=== PATIENT | female | born 1985 | race Caucasian/White ===

== ENCOUNTER 2020-07-24 06:04 | Emergency (ER) | payer BC, OTHER ==
--- NOTE | 2020-07-24 06:54 | EDM.PDOC ---
<Leo Silverman - Last Filed: 07/24/20 06:58> ED HPI GENERAL MEDICAL PROBLEM - General Chief Complaint: General Stated Complaint: BOTH LEGS HURT, SMALL OF BACK ALSO Time Seen by Provider: 07/24/20 06:22 Source of Information: Reports: Patient History Limitations: Reports: No Limitations - History of Present Illness INITIAL COMMENTS - FREE TEXT/NARRATIVE: onset F/C body aches, head congestion, Friday. then started LBP. then everything went down to both her thighs and legs today. legs feel heavy but not painful. states denies F/C now but feels general body discomfort that is hard to describe. appetite fair. denies CP/SOB/ cough. denies UTI Sx, but did have LBP that is better now. denies h/o back problems. 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 ED EXAM, GENERAL - Physical Exam Exam: See Below Exam Limited By: No Limitations General Appearance: Alert, WD/WN, Mild Distress, Other (general discomfort) Ears: Hearing Grossly Normal Throat/Mouth: Normal Voice, No Airway Compromise Head: Atraumatic Neck: Non-Tender, Full Range of Motion Respiratory/Chest: No Respiratory Distress Cardiovascular: Regular Rate, Rhythm GI/Abdominal: Soft, Non-Tender (Female) Exam: Deferred Rectal (Female) Exam: Deferred Neurological: Alert, Oriented, Normal Cognition, Normal Gait, No Motor/Sensory Deficits Psychiatric: Flat Affect Skin Exam: Warm, Dry, Normal Color Lymphatic: No Adenopathy Departure - Departure Disposition: Home, Self-Care 01 Clinical Impression: COVID-19 - Discharge Information Instructions: COVID-19 Frequently Asked Questions, COVID-19: How to Protect Yourself and Others - CDC, Prevent the Spread of COVID-19 if You Are Sick - CDC Forms: ED Department Discharge Additional Instructions: Quarantine yourself and your family and close contacts for the next 14. The state will be contacting you for contact tracing. Notify any close contacts of your diagnosis. Rest as much as possible. Plenty of fluids. Tylenol as needed for pain fever discomfort. Vit C 500mg by mouth twice daily. Zinc 50mg by mouth daily. Vit D3 5000 units daily. Stay home and away from people. Call the clinic prior to going in if you are getting sick to the point of concern. Return to the ED if new or worsening symptom. Sepsis Event Note (ED) - Evaluation Sepsis Screening Result: No Definite Risk <Pacheco Berry - Last Filed: 07/24/20 08:52> Course - Vital Signs Last Recorded V/S: Last Vital Signs Temp 96.5 F L 07/24/20 06:14 Pulse 98 07/24/20 06:14 Resp 18 07/24/20 06:14 BP 106/62 07/24/20 06:14 Pulse Ox 100 07/24/20 06:14 - Orders/Labs/Meds Orders: Active Orders 24 hr Category Date Time Status Isolation [COMM] Routine Oth 07/24/20 06:31 Active Labs: Laboratory Tests 07/24/20 07/24/20 07/24/20 Range/Units 06:40 06:40 06:40 WBC 3.2 L (5.0-10.0) 10^3/uL RBC 4.41 (4.2-5.4) 10^6/uL Hgb 12.5 (12.0-16.0) g/dL Hct 38.3 (37.0-47.0) % MCV 86.8 (80-100) fL MCH 28.3 (27.0-34.0) pg MCHC 32.6 L (33.0-35.0) g/dL Plt Count 197 (150-450) 10^3/uL Neut % (Auto) 53.3 (42.2-75.2) % Lymph % (Auto) 32.1 (20.5-50.1) % [place] % (Auto) 10.5 H (2-8) % Eos % (Auto) 3.8 H (1.0-3.0) % Baso % (Auto) 0.3 (0.0-1.0) % D-Dimer, Quantitative 180 (0-400) ng/mL Sodium 141 (136-145) mmol/L Potassium 4.2 (3.5-5.1) mmol/L Chloride 104 (98-107) mmol/L Carbon Dioxide 29 (21-32) mmol/L Anion Gap 12.2 (7-13) mEq/L BUN 11 (7-18) mg/dL Creatinine 0.77 (0.55-1.02) mg/dL Est Cr Clr Drug Dosing 97.28 mL/min Estimated GFR (MDRD) > 60 BUN/Creatinine Ratio 14.3 (No establ ref range) Glucose 100 H (74-99) mg/dL Calcium 8.4 L (8.5-10.1) mg/dL Total Bilirubin 0.3 (0.2-1.0) mg/dL AST 33 (15-37) U/L ALT 63 H (14-59) U/L Alkaline Phosphatase 100 (46-116) U/L Total Protein 6.9 (6.4-8.2) g/dL Albumin 3.6 (3.4-5.0) g/dL Globulin 3.3 Albumin/Globulin Ratio 1.1 Urine Color (YELLOW) Urine Appearance (CLEAR) Urine pH (5.0-9.0) Ur Specific Orla (1.005-1.030) Urine Protein (NEGATIVE) Urine Glucose (UA) (NEGATIVE) Urine Ketones (NEGATIVE) Urine Occult Blood (NEGATIVE) Urine Nitrite (NEGATIVE) Urine Bilirubin (NEGATIVE) Urine Urobilinogen (0.2-1.0) mg/dL Ur Leukocyte Esterase (NEGATIVE) Urine RBC /HPF Urine WBC (0-5/HPF) /HPF Ur Epithelial Cells (NOT SEEN) /HPF Amorphous Sediment (NOT SEEN) /HPF Urine Bacteria (0-FEW/HPF) /HPF Urine Mucus (NOT SEEN) /LPF Urine HCG, Qual Urine Opiates Screen (NEGATIVE) Ur Oxycodone Screen (NEGATIVE) Urine Methadone Screen (NEGATIVE) Ur Barbiturates Screen (NEGATIVE) U Tricyclic Antidepress (NEGATIVE) Ur Phencyclidine Scrn (NEGATIVE) Ur Amphetamine Screen (NEGATIVE) U Methamphetamines Scrn (NEGATIVE) Urine MDMA Screen (NEGATIVE) U Benzodiazepines Scrn (NEGATIVE) Urine Cocaine Screen (NEGATIVE) U Marijuana (THC) Screen (NEGATIVE) SARS CoV-2 RNA Rapid RONA (NEGATIVE) 07/24/20 07/24/20 07/24/20 Range/Units 07:30 07:47 07:47 WBC (5.0-10.0) 10^3/uL RBC (4.2-5.4) 10^6/uL Hgb (12.0-16.0) g/dL Hct (37.0-47.0) % MCV (80-100) fL MCH (27.0-34.0) pg MCHC (33.0-35.0) g/dL Plt Count (150-450) 10^3/uL Neut % (Auto) (42.2-75.2) % Lymph % (Auto) (20.5-50.1) % [place] % (Auto) (2-8) % Eos % (Auto) (1.0-3.0) % Baso % (Auto) (0.0-1.0) % D-Dimer, Quantitative (0-400) ng/mL Sodium (136-145) mmol/L Potassium (3.5-5.1) mmol/L Chloride (98-107) mmol/L Carbon Dioxide (21-32) mmol/L Anion Gap (7-13) mEq/L BUN (7-18) mg/dL Creatinine (0.55-1.02) mg/dL Est Cr Clr Drug Dosing mL/min Estimated GFR (MDRD) BUN/Creatinine Ratio (No establ ref range) Glucose (74-99) mg/dL Calcium (8.5-10.1) mg/dL Total Bilirubin (0.2-1.0) mg/dL AST (15-37) U/L ALT (14-59) U/L Alkaline Phosphatase (46-116) U/L Total Protein (6.4-8.2) g/dL Albumin (3.4-5.0) g/dL Globulin Albumin/Globulin Ratio Urine Color Yellow (YELLOW) Urine Appearance Slightly cloudy (CLEAR) Urine pH 5.5 (5.0-9.0) Ur Specific Orla >= 1.030 (1.005-1.030) Urine Protein Negative (NEGATIVE) Urine Glucose (UA) Negative (NEGATIVE) Urine Ketones Negative (NEGATIVE) Urine Occult Blood Small H (NEGATIVE) Urine Nitrite Negative (NEGATIVE) Urine Bilirubin Negative (NEGATIVE) Urine Urobilinogen 0.2 (0.2-1.0) mg/dL Ur Leukocyte Esterase Negative (NEGATIVE) Urine RBC 5-10 H /HPF Urine WBC 0-5 (0-5/HPF) /HPF Ur Epithelial Cells Few (NOT SEEN) /HPF Amorphous Sediment Few (NOT SEEN) /HPF Urine Bacteria Rare (0-FEW/HPF) /HPF Urine Mucus Rare (NOT SEEN) /LPF Urine HCG, Qual Negative Urine Opiates Screen (NEGATIVE) Ur Oxycodone Screen (NEGATIVE) Urine Methadone Screen (NEGATIVE) Ur Barbiturates Screen (NEGATIVE) U Tricyclic Antidepress (NEGATIVE) Ur Phencyclidine Scrn (NEGATIVE) Ur Amphetamine Screen (NEGATIVE) U Methamphetamines Scrn (NEGATIVE) Urine MDMA Screen (NEGATIVE) U Benzodiazepines Scrn (NEGATIVE) Urine Cocaine Screen (NEGATIVE) U Marijuana (THC) Screen (NEGATIVE) SARS CoV-2 RNA Rapid RONA Positive H (NEGATIVE) 07/24/20 Range/Units 07:47 WBC (5.0-10.0) 10^3/uL RBC (4.2-5.4) 10^6/uL Hgb (12.0-16.0) g/dL Hct (37.0-47.0) % MCV (80-100) fL MCH (27.0-34.0) pg MCHC (33.0-35.0) g/dL Plt Count (150-450) 10^3/uL Neut % (Auto) (42.2-75.2) % Lymph % (Auto) (20.5-50.1) % [place] % (Auto) (2-8) % Eos % (Auto) (1.0-3.0) % Baso % (Auto) (0.0-1.0) % D-Dimer, Quantitative (0-400) ng/mL Sodium (136-145) mmol/L Potassium (3.5-5.1) mmol/L Chloride (98-107) mmol/L Carbon Dioxide (21-32) mmol/L Anion Gap (7-13) mEq/L BUN (7-18) mg/dL Creatinine (0.55-1.02) mg/dL Est Cr Clr Drug Dosing mL/min Estimated GFR (MDRD) BUN/Creatinine Ratio (No establ ref range) Glucose (74-99) mg/dL Calcium (8.5-10.1) mg/dL Total Bilirubin (0.2-1.0) mg/dL AST (15-37) U/L ALT (14-59) U/L Alkaline Phosphatase (46-116) U/L Total Protein (6.4-8.2) g/dL Albumin (3.4-5.0) g/dL Globulin Albumin/Globulin Ratio Urine Color (YELLOW) Urine Appearance (CLEAR) Urine pH (5.0-9.0) Ur Specific [place] (1.005-1.030) Urine Protein (NEGATIVE) Urine Glucose (UA) (NEGATIVE) Urine Ketones (NEGATIVE) Urine Occult Blood (NEGATIVE) Urine Nitrite (NEGATIVE) Urine Bilirubin (NEGATIVE) Urine Urobilinogen (0.2-1.0) mg/dL Ur Leukocyte Esterase (NEGATIVE) Urine RBC /HPF Urine WBC (0-5/HPF) /HPF Ur Epithelial Cells (NOT SEEN) /HPF Amorphous Sediment (NOT SEEN) /HPF Urine Bacteria (0-FEW/HPF) /HPF Urine Mucus (NOT SEEN) /LPF Urine HCG, Qual Urine Opiates Screen Negative (NEGATIVE) Ur Oxycodone Screen Negative (NEGATIVE) Urine Methadone Screen Negative (NEGATIVE) Ur Barbiturates Screen Negative (NEGATIVE) U Tricyclic Antidepress Negative (NEGATIVE) Ur Phencyclidine Scrn Negative (NEGATIVE) Ur Amphetamine Screen Negative (NEGATIVE) U Methamphetamines Scrn Negative (NEGATIVE) Urine MDMA Screen Negative (NEGATIVE) U Benzodiazepines Scrn Negative (NEGATIVE) Urine Cocaine Screen Negative (NEGATIVE) U Marijuana (THC) Screen Negative (NEGATIVE) SARS CoV-2 RNA Rapid RONA (NEGATIVE) Meds: Medications Discontinued Medications Generic Name Dose Route Start Last Admin Trade Name Freq PRN Reason Stop Dose Admin Ketorolac Tromethamine 30 mg 07/24/20 07:11 Toradol IM 07/24/20 07:12 ONETIME ONE - Re-Assessments/Exams Free Text/Narrative Re-Assessment/Exam: 07/24/20 07:12 Assumed care of the patient from Dr. Silverman. Waiting for labs to return. Dr. Silverman would like Toradol given IM. Order placed. 07/24/20 08:50 Majority the patient's laboratory evaluation is rather unremarkable. She does have a small amount of leukopenia. Her chemistry panel is unremarkable as well as her urinalysis. Her COVID test is positive. She really has no respiratory symptoms. We will discharge her home at this time with quarantine for the next 14 days as well as close contacts in family members. Supportive care to include vitamin C zinc and D3 as well. Discussed the importance of home isolation and contacting the clinic or the emergency department prior to their arrival so that we can guide them appropriately at home. The information for COVID positive patients in quarantining was given to the patient as well. Discharge instructions as below are explained to the patient she was comfortable with this plan and her questions are answered. Departure - Departure Time of Disposition: 08:30 Sepsis Event Note (ED) - Focused Exam Vital Signs: Vital Signs Temp Pulse Resp BP Pulse Ox 07/24/20 06:14 96.5 F L 98 18 106/62 100
[2020-07-24 07:05] LABS: ANION GAP 12.2 mEq/L (7-13); CHLORIDE,CL 104 mmol/L (98-107); SODIUM,NA 141 mmol/L (136-145)
[2020-07-24] MEDS ORDERED: Ketorolac 30 MG/ML SDV IM ONE (07:11)
== END 2020-07-24 09:05 | disposition home or self-care (01) ==
LOC: DL.ED 06:04
DX: U07.1 COVID-19 (principal); D72.819 Decreased white blood cell count, unspecified; M79.652 Pain in left thigh; M79.651 Pain in right thigh; F41.9 Anxiety disorder, unspecified; Z88.0 Allergy status to penicillin; Z79.899 Other long term (current) drug therapy
CPT/HCPCS: 36415; 80053; 80305-QW; 81001; 81025; 85025; 85379; 87804; 99283; U0002

== ENCOUNTER 2021-05-07 17:34 | Emergency (ER) | payer BC ==
--- NOTE | 2021-05-07 18:06 | EDM.PDOC ---
ED HPI GENERAL MEDICAL PROBLEM - General Chief Complaint: Lower Extremity Injury/Pain Stated Complaint: LEG PAIN Time Seen by Provider: 05/07/21 17:55 Source of Information: Reports: Patient, [facility] Records, RN History Limitations: Reports: No Limitations - History of Present Illness INITIAL COMMENTS - FREE TEXT/NARRATIVE: Lety is a 36 y/o female who presents to the ED via personal vehicle with complaints of left lower extremity pain and edema. The patient reports a history of a large varicose vein in the left extremity which she feels has grown in width over the past 24 hours. The notes pain to the extremity while walking, but less-so at rest. She denies chest pain, palpitations, shortness of breath, loss of motor/sensory function to the left extremity. The patient does report a history of COVID infection earlier this year. She denies history of blood clot and has never taken blood thinners. 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 ED EXAM, GENERAL - Physical Exam Exam: See Below Exam Limited By: No Limitations General Appearance: Alert, No Apparent Distress Eye Exam: Bilateral Eye: EOMI, Normal Inspection, PERRL (3mm) Ears: Normal External Exam, Hearing Grossly Normal Nose: Normal Inspection, Normal Mucosa, No Blood Throat/Mouth: Normal Inspection, Normal Lips, Normal Teeth, Normal Gums, Normal Oropharynx, Normal Voice, No Airway Compromise Head: Atraumatic, Normocephalic Neck: Normal Inspection, Supple, Non-Tender, Full Range of Motion Respiratory/Chest: No Respiratory Distress, Lungs Clear, Normal Breath Sounds, No Accessory Muscle Use, Chest Non-Tender Cardiovascular: Normal Peripheral Pulses, Regular Rate, Rhythm, No Edema, No Gallop, No JVD, No Murmur, No Rub Peripheral Pulses: 2+: Radial (L), Radial (R) GI/Abdominal: Normal Bowel Sounds, Soft, Non-Tender (Female) Exam: Deferred Rectal (Female) Exam: Deferred Extremities: Normal Range of Motion, Normal Capillary Refill, Pedal Edema (Trace edema to LLE), Leg Pain (To left upper and lower leg), Increased Warmth (To LLE). No: Mottled, Pallor, Redness Neurological: Alert, Oriented, CN II-XII Intact, Normal Cognition, Normal Gait, No Motor/Sensory Deficits Psychiatric: Normal Affect, Normal Mood Skin Exam: Warm, Dry, Intact, Normal Color, No Rash. No: Cyanosis, Jaundice, Mottled, Pallor Course - Vital Signs Last Recorded V/S: Last Vital Signs Temp 97.9 F 05/07/21 17:49 Pulse 80 05/07/21 19:03 Resp 18 05/07/21 19:03 BP 122/85 05/07/21 19:03 Pulse Ox 98 05/07/21 19:03 - Orders/Labs/Meds Labs: Laboratory Tests 05/07/21 Range/Units 18:15 D-Dimer, Quantitative 134 (0-400) ng/mL - Re-Assessments/Exams Free Text/Narrative Re-Assessment/Exam: 05/07/21 Will obtain D-dimer to r/o blood clot. Findings of examination and lab work reviewed with patient. Discussed supportive cares for left leg pain. Red flag signs and symptoms which would warrant reevaluation reviewed. Patient verbalized understanding and agreement with the plan of care. Departure - Departure Time of Disposition: 18:45 Disposition: Home, Self-Care 01 Condition: Good Clinical Impression: Pain of left leg Varicose vein of leg Qualifiers: Varicose vein complication: pain Laterality: left Qualified Code(s): I83.812 - Varicose veins of left lower extremity with pain - Discharge Information *PRESCRIPTION DRUG MONITORING PROGRAM REVIEWED*: Not Applicable *COPY OF PRESCRIPTION DRUG MONITORING REPORT IN PATIENT CELESTINA: Not Applicable Instructions: Varicose Veins, Surgical Procedures for Varicose Veins Forms: ED Department Discharge Additional Instructions: 1.) You may take ibuprofen (Advil/Motrin) 400mg every six hours, as pain and swelling persists. You may also take acetaminophen (Tylenol) 650mg every six hours, as pain persists. You may stagger these medications so you are receiving a dose every three hours. 2.) Monitor for redness, warmth, or swelling to the left leg. 3.) Follow up with primary care provider regarding today's visit. Should you want to receive a vascular consult your PCP would be able to help you with a referral. Sepsis Event Note (ED) - Evaluation Sepsis Screening Result: No Definite Risk
== END 2021-05-07 19:05 | disposition home or self-care (01) ==
LOC: DL.ED 17:34
DX: I83.812 Varicose veins of left lower extremity with pain (principal); Z88.0 Allergy status to penicillin; Z86.16 Personal history of COVID-19
CPT/HCPCS: 36415; 85379; 99284

== ENCOUNTER 2023-10-17 13:40 | Emergency (ER) | payer BC, OTHER ==
[2023-10-17] MEDS ORDERED: Lactated Ringers 1,000 ML IV ONE (14:09)
[2023-10-17 14:15] LABS: BASOPHILS PERCENT AUTO 0.2 % (0.0-1.0); EOSINOPHILS PERCENT AUTO 3.1 % (1.0-3.0); HEMATOCRIT 40.6 % (37.0-47.0); HEMOGLOBIN 13.2 g/dL (12.0-16.0); LYMPHOCYTES PERCENT AUTO 20.4 % (20.5-50.1); MEAN CORPUSCULAR HEMOGLOBIN 28.7 pg (27.0-34.0); MEAN CORPUSCULAR HGB CONC 32.5 g/dL (33.0-35.0); MEAN CORPUSCULAR VOLUME 88.3 fL (80-100); MONOCYTES PERCENT AUTO 4.3 % (2-8); PLATELET COUNT,PLT 297 10^3/uL (150-450); WHITE BLOOD CELL COUNT,WBC 9.2 10^3/uL (5.0-10.0)
[2023-10-17 14:19] LABS: BILIRUBIN,URINE NEGATIVE (NEGATIVE); COLOR,URINE YELLOW (YELLOW); GLUCOSE,URINE NEGATIVE (NEGATIVE); KETONES,URINE NEGATIVE (NEGATIVE); LEUKOCYTE ESTERASE,URINE SMALL (NEGATIVE); NITRITE,URINE NEGATIVE (NEGATIVE); OCCULT BLOOD,URINE NEGATIVE (NEGATIVE); PH,URINE 5.5 (5.0-9.0); PROTEIN,URINE NEGATIVE (NEGATIVE); UROBILINOGEN,URINE 0.2 mg/dL (0.2-1.0)
[2023-10-17 14:20] LABS: APPEARANCE,URINE SLIGHTLY CLOUDY (CLEAR)
[2023-10-17 14:30] LABS: BACTERIA,URINE MODERATE /HPF (0-FEW/HPF); EPITHELIAL CELLS,URINE MODERATE /HPF (NOT SEEN); MUCUS,URINE OCCASIONAL /LPF (NOT SEEN); RBC,URINE 0-5 /HPF (0-5); WBC,URINE 0-5 /HPF (0-5/HPF)
[2023-10-17 14:57] LABS: A/G RATIO 0.9; ALANINE AMINOTRANSFERASE,ALT 54 U/L (14-59); ALBUMIN 3.8 g/dL (3.4-5.0); ALKALINE PHOSPHATASE 109 U/L (46-116); ASPARTATE AMNIOTRANSFERASE,AST 33 U/L (15-37); BILIRUBIN TOTAL 0.5 mg/dL (0.2-1.0); BLOOD UREA NITROGEN,BUN 19 mg/dL (7-18); CALCIUM 9.1 mg/dL (8.5-10.1); CARBON DIOXIDE,CO2 26 mmol/L (21-32); CHLORIDE,CL 100 mmol/L (98-107); GLUCOSE RANDOM 133 mg/dL (70-99); PROTEIN TOTAL,TP 8.1 g/dL (6.4-8.2); SODIUM,NA 138 mmol/L (136-145)
[2023-10-17 15:02] LABS: BUN/CREATININE RATIO 18.4 (No establ ref range); CREATININE 1.03 mg/dL (0.55-1.02); EST CRCL DRUG DOSING (CG) 70.69 mL/min; ESTIMATED GFR 72 mL/min (>=60)
== END 2023-10-17 15:25 | disposition home or self-care (01) ==
LOC: DL.ED 13:40
DX: R00.2 Palpitations (principal); R00.0 Tachycardia, unspecified; E66.9 Obesity, unspecified; Z86.16 Personal history of COVID-19; Z79.899 Other long term (current) drug therapy; Z88.0 Allergy status to penicillin; Z68.41 Body mass index [BMI] 40.0-44.9, adult
CPT/HCPCS: 36415; 80053; 81001; 81025; 84443; 84484; 85025; 85379; 87086; 93005; 96374; 99284; J3360; J7120

== ENCOUNTER → 2025-04-21 | Day surgery (SDC) | payer OTHER ==
[~2025-04-21] MED LIST: Dexamethasone 4 MG/ML SDV IV ONE; Doxycycline 200 MG in Sodium Chloride 0.9% 100 ML IV ONE; Lactated Ringers 1,000 ML IV ONE; Lidocaine 1% 30 ML SDV NERVRT ONE; Propofol 200 MG/20 ML SDV IV ONE; Propofol 200 MG/20 ML SDV ONE; Rho(D) Immune Globulin 300 MCG/2 ML Syringe IM ONE
== END ==
LOC: DL.SDS 12:37
PROVIDERS: ATTEND Student in an Organized Health Care Education/Training Program
DX: O02.1 Missed abortion (principal); O09.521 Supervision of elderly multigravida, first trimester; I10 Essential (primary) hypertension; E66.9 Obesity, unspecified; E11.9 Type 2 diabetes mellitus without complications; Z53.8 Procedure and treatment not carried out for other reasons; Z67.91 Unspecified blood type, Rh negative; Z87.891 Personal history of nicotine dependence
CPT/HCPCS: J1100; J2003; J2704; J7120; 00940

== ENCOUNTER 2025-04-22 12:12 | Day surgery (SDC) | payer OTHER ==
[~2025-04-22 12:12] MED LIST changes: -Dexamethasone 4 MG/ML SDV IV ONE; -Lactated Ringers 1,000 ML IV ONE; -Lidocaine 1% 30 ML SDV NERVRT ONE; -Propofol 200 MG/20 ML SDV IV ONE; -Propofol 200 MG/20 ML SDV ONE; -Rho(D) Immune Globulin 300 MCG/2 ML Syringe IM ONE
[2025-04-22] MEDS: Lactated Ringers 1,000 ML IV SCH (12:57)
[2025-04-22] MEDS ORDERED: Doxycycline 200 MG in Sodium Chloride 0.9% 100 ML IV ONE (13:00)
[2025-04-22] MEDS: Rho(D) Immune Globulin 300 MCG/2 ML Syringe IM ONE (13:40)
[2025-04-22] MEDS: Acetaminophen 500 MG Tab PO ONE (14:12)
== END 2025-04-22 15:15 | disposition home or self-care (01) ==
LOC: DL.SDS 12:12
PROVIDERS: ATTEND Student in an Organized Health Care Education/Training Program
DX: O02.1 Missed abortion (principal); O09.521 Supervision of elderly multigravida, first trimester; Z67.91 Unspecified blood type, Rh negative; Z87.891 Personal history of nicotine dependence
CPT/HCPCS: 36415; 59820; 84702; A9270; J2791; J7120

== ENCOUNTER 2025-04-24 04:54 | Emergency (ER) | payer OTHER ==
[2025-04-24 05:53] LABS: BASOPHILS PERCENT AUTO 0.1 % (0.0-1.0); EOSINOPHILS PERCENT AUTO 2.5 % (1.0-3.0); HEMATOCRIT 35.5 % (37.0-47.0); HEMOGLOBIN 11.7 g/dL (12.0-16.0); LYMPHOCYTES PERCENT AUTO 15.7 % (20.5-50.1); MEAN CORPUSCULAR HEMOGLOBIN 28.7 pg (27.0-34.0); MEAN CORPUSCULAR VOLUME 87.2 fL (80-100); MONOCYTES PERCENT AUTO 5.7 % (2-8); PLATELET COUNT,PLT 281 10^3/uL (150-450); RED BLOOD CELL COUNT 4.07 10^6/uL (4.2-5.4); WHITE BLOOD CELL COUNT,WBC 13.3 10^3/uL (5.0-10.0)
[2025-04-24] MEDS: Ketorolac 30 MG/ML SDV IM ONE (06:09)
[2025-04-24 06:18] LABS: ALBUMIN 3.2 g/dL (3.4-5.0); ANION GAP 11.1 mEq/L (7-13); BILIRUBIN TOTAL 0.3 mg/dL (0.2-1.0); BUN/CREATININE RATIO 15.3 (No establ ref range); CALCIUM 8.4 mg/dL (8.5-10.1); CREATININE 0.85 mg/dL (0.55-1.02); EST CRCL DRUG DOSING (CG) 74.96 mL/min; POTASSIUM,K 4.1 mmol/L (3.5-5.1); PROTEIN TOTAL,TP 6.9 g/dL (6.4-8.2)
[2025-04-24 06:20] LABS: A/G RATIO 0.86
== END 2025-04-24 06:52 | disposition home or self-care (01) ==
LOC: DL.ED 04:54
DX: G89.18 Other acute postprocedural pain (principal); R10.2 Pelvic and perineal pain; Z87.59 Personal history of other complications of pregnancy, childbirth and the puerperium; Z88.0 Allergy status to penicillin; E66.9 Obesity, unspecified; Z86.16 Personal history of COVID-19; Z79.899 Other long term (current) drug therapy; Z68.42 Body mass index [BMI] 45.0-49.9, adult
CPT/HCPCS: 36415; 80053; 85025; 96372; 99283; 99284; J1885